=== PATIENT | female | born 1945 | race Caucasian/White ===

== ENCOUNTER → 2016-11-30 | Outpatient (CLI) | payer MEDICARE, OTHER ==
[2016-11-30 15:53] LABS: EKG EKG PERFORMED
[2016-11-30 16:54] LABS: CH 29.7; CHCM 33.7; HCT 38.1 % (34.0-46.0); HDW 2.35; MCH 30.3 pg (25.0-35.0); MCHC 34.2 g/dL (31.0-37.0); MCV 88.5 fL (80.0-100.0); Mean Platelet Volume 7.3; RBC 4.31 m/uL (3.80-5.40); RDW 12.1 % (11.5-15.5)
[2016-11-30 16:59] LABS: ALT 27 U/L (9-52); AST 26 U/L (14-36); Alkaline Phosphatase 87 U/L (38-126); Anion Gap 12 mmol/L; Blood Urea Nitrogen 15 mg/dL (7-17); Calcium 9.5 mg/dL (8.4-10.2); Carbon Dioxide 25 mmol/L (22-30); Chloride 101 mmol/L (98-107); Glucose 92 mg/dL (74-99); Non-African American GFR(MDRD) >60 (>60 ml/min/1.73 sqM); Potassium 4.2 mmol/L (3.5-5.1); Sodium 138 mmol/L (137-145); Total Bilirubin 0.4 mg/dL (0.2-1.3); Total Protein 7.7 g/dL (6.3-8.2)
== END | disposition home or self-care (01) ==
LOC: LABPAT 15:42
PROVIDERS: ATTEND Surgery
DX: Z01.818 Encounter for other preprocedural examination (principal)
CPT/HCPCS: 80053; 85027; 86850; 86900; 86901; 93005

== ENCOUNTER → 2016-12-03 | Outpatient (CLI) | payer MEDICARE, OTHER | END | disposition home or self-care (01) | LOC: LABPAT 07:03 | PROVIDERS: ATTEND Surgery | DX: Z53.9 Procedure and treatment not carried out, unspecified reason (principal) ==

== ENCOUNTER 2016-12-07 10:09 | Inpatient (IN) | payer MEDICARE, OTHER ==
[2016-12-02 13:11] VITALS: BMI 21.6
[~2016-12-07 10:09] MED LIST: DEXAMETHASONE SOD PHOSPHATE 10 MG/ML 1 ML VIAL IV ONE; HEPARIN SODIUM,PORCINE 5,000 UNIT/ML 1 ML VIAL SQ ONE; HYDROmorphone 1 MG/ML 1 ML SYRINGE IVP PRN; ONDANSETRON 4 MG/2 ML VIAL IVP ONE
[2016-12-07 14:02] LABS: Glucose,Whole Blood 119 mg/dL (75-99)
[2016-12-07] MEDS ORDERED: LIDOCAINE 1% 20 ML VIAL (10MG/ML) FOR IV START INTRADERMA ONE (14:03)
[2016-12-07] MEDS: LACTATED RINGERS 1,000 ML IV SCH ×3 (14:03→23:56)
[2016-12-07] MEDS ORDERED: KETOROLAC 30 MG/ML 1 ML VIAL ONE (16:43)
[2016-12-07] MEDS ORDERED: MIDAZOLAM 2 MG/2 ML VIAL ONE (16:43)
[2016-12-07] MEDS ORDERED: PROPOFOL 10 MG/ML 20 ML VIAL IV ONE (16:43)
[2016-12-07] MEDS ORDERED: ROCURONIUM BROMIDE 10 MG/ML 10 ML VIAL IV ONE (16:43)
[2016-12-07] MEDS ORDERED: HYDROmorphone (PF) 1 MG/ML ONE (16:43)
[2016-12-07] MEDS ORDERED: SUCCINYLCHOLINE CHLORIDE 100 MG/5 ML SYR IV ONE (16:43)
[2016-12-07] MEDS ORDERED: LIDOCAINE 1% INJ 10MG/ML (20 ML MDV) ONE (16:43)
[2016-12-07] MEDS ORDERED: fentaNYL (PF) 50 MCG/ML 2 ML AMP ONE (16:43)
[2016-12-07] MEDS ORDERED: GLYCOPYRROLATE 0.2 MG/ML 2 ML VIAL ONE (16:43)
[2016-12-07] MEDS ORDERED: NEOSTIGMINE 1 MG/ML 10 ML VIAL ONE (16:43)
[2016-12-07] MEDS ORDERED: PHENYLEPHRINE-0.9% NACL SYG 1 MG/10 ML SYRINGE ONE (16:43)
[2016-12-07] MEDS: ceFAZolin 2 GM in SODIUM CHLORIDE 0.9% 100 ML IVPB ONE ×2 (16:50→17:25)
[2016-12-07] MEDS: metroNIDAZOLE-NS PMX 500 MG in SALINE 1 100ML.BAG IVPB ONE ×2 (17:00→17:25)
[2016-12-07] MEDS ORDERED: BUPIVACAIN-EPI 0.25%-1:200,000 30 ML VIAL SQ ONE ×2 (17:12)
[2016-12-07] MEDS ORDERED: LACTATED RINGERS 1,000 ML IV ONE ×2 (17:25→18:38)
[2016-12-07] MEDS ORDERED: ONDANSETRON 4 MG/2 ML VIAL IVP PRN (20:00)
[2016-12-07] MEDS ORDERED: METOCLOPRAMIDE 5 MG/ML 2 ML VIAL IVP PRN (20:00)
[2016-12-07] MEDS ORDERED: BENZOCAINE/MENTHOL LOZENG 1 EACH LOZENGE MUCOUS MEM PRN (20:00)
--- NOTE | 2016-12-07 20:06 | P.OP ---
Date of Procedure: 12/07/16 Preoperative Diagnosis: Right colon cancer Postoperative Diagnosis: Same Procedure(s) Performed: Laparoscopic right hemicolectomy Implants: NA Anesthesia: TERRENCE Surgeon: Zena Alonzo Watch Leader #1: Sabine Rodriguez Estimated Blood Loss (ml): 50 Condition: stable Disposition: PACU Indications for Procedure: 71 yrs old female S/P colonoscopy with biopsy of ascending colon mass which showed adenocarcinoma. Metastatic work up negative. CEA was normal. Informed consent obtained and she elected to undergo laparoscopic right hemicolectomy possible open . The risks, benefits and potential complications explained. Operative Findings: Right colon mass. No clinical evidence of metastatic deposit in liver or peritoneum. Description of Procedure: The patient was brought to the operating room and placed in supine position with both arms out. General anesthesia with endotracheal intubation was performed as per anesthesia team. A Conner catheter was inserted under sterile aseptic precautions. Bilateral SCDs were placed and patient was secured to the operating table using a footboard and two secure straps. Chlorhexidine was used to prep the abdomen followed by application of sterile drapes . A timeout was performed to verify correct patient and procedure. Patient was confirmed to receive perioperative IV antibiotics and subcutaneous VTE prophylaxis. A 5 mm skin incision was made along the left anterior axillary line and Veress needle was inserted. Pneumoperitoneum was established to a pressure of 15 mmHg without any difficulty. A 5 mm 30 laparoscope was loaded with 5 mm Optiview trocar and the peritoneal cavity was entered under direct vision using the Optiview technique. Additional 5 mm trocar was placed in left lower quadrant, another 5 mm trocar was placed midway between pubic symphysis and umbilicus and a 10 mm trocar was placed above the umbilicus. The left upper trocar was upsized to 11 mm Patient was placed in reverse Trendelenburg with right side up. The tattooed area was identified in the ascending colon. The appendix was identified and elevated using a Santo grasper. Dissection was carried out from lateral to medial orientation. The white line of Toldt was dissected using laparoscopic LigaSure device. Blunt sweeping movements were carried out using fenestrated graspers to reflect the cecum and ascending colon medially. The peritoneal attachments from terminal ileum and cecum to the lateral abdominal wall were taken down using LigaSure. Dissection was carried out close to the cecum and away from the right ureter. Attention was then focused to mobilize the hepatic flexure. Dissection was then carried out from transverse mesocolon towards the hepatic flexure. Blunt sweeping movements were used and the duodenum was left in the retroperitoneum. Care was taken not to mobilize the right kidney medially. The entire right colon was mobilized beyond the hepatic flexure. Loose fibrofatty tissue including small blood vessels were taken down using LigaSure device. The cecum was free enough to reach the midline. The ileocolic pedicle was taken using Covidien benoit load with gold tip. The appendix was grasped with a laparoscopic Santo instrument. An 4 cm skin incision was made in the upper midline. This was deepened through skin and subcutaneous tissue till the fascia was identified and peritoneal cavity was safely entered. An Amanuel wound protector device was inserted. The appendix along with the cecum was exteriorized. A window was made in mesentery of the small bowel approximately 5 cm from ileocecal valve. The small bowel was divided using Covidien 60 benoit staple load. The ileocolic pedicle divided between two Mitzi clamps and doubly suture ligated. The colon was divided 10 cm distal to the tattoed area after creating a window in the mesocolon. Covidien 60 purple staple load was fired to transect the large bowel. The mesentery was divided between 2 Mitzi clamps . The right colon was sent off as a specimen. Attention was then focused to create a [id number] functional end anastomosis between small bowel and transverse colon. Covidien 60 purple staple loadx 2 was fired to create a [id number] anastomosis. The final enterotomy was closed using 60 purple loadx 2. Three seromuscular sutures of 3-0 silk were placed between the small and large bowel anastomosis. There was no twist or torsion of the large or small bowel. The mesenteric defect was closed with interrupted sutures of 4-0 Vicryl. The anastomosis was interiorized and GelPort was placed. Pneumoperitoneum was reestablished. The anastomosis was checked intracorporeally. No evidence of torsion or twist. The GelPort and Amanuel device was removed and fascia closed with continuous running suture of#1PDS x 2. Preena wound vac dressing applied. The sponge, instrument, needle count were correct x2 Patient tolerated the procedure well and was taken to post anesthetic care unit in stable condition.
[2016-12-07] MEDS ORDERED: SCOPOLAMINE 1.5MG/72HR PATCH TRANSDERM SCH (20:15)
[2016-12-07 20:27] VITALS: RESP 16
[2016-12-07] MEDS: FAMOTIDINE 20 MG/2 ML VIAL IV SCH (22:36)
[2016-12-07] MEDS: ACETAMINOPHEN IV (For NPO) 1,000 MG in EMPTY BAG 1 BAG IVPB SCH (22:41)
[2016-12-07 22:58] LABS: Basophils % (A) 0 %; CHCM 33.2; Eosinophils % (A) 0 %; HCT 37.9 % (34.0-46.0); HDW 2.15; HGB 12.4 gm/dL (11.4-16.0); Luc # (Auto) 0.03; Luc % (Auto) 0; Lymphocytes # (A) 0.3 k/uL (1.0-4.8); Lymphocytes % (A) 3 %; MCH 29.6 pg (25.0-35.0); MCHC 32.6 g/dL (31.0-37.0); MCV 90.7 fL (80.0-100.0); Mean Platelet Volume 7.3; Monocytes # (A) 0.2 k/uL (0-1.0); Monocytes % (A) 3 %; Neutrophils # (A) 8.6 k/uL (1.3-7.7); Neutrophils % (A) 94 %; RBC 4.18 m/uL (3.80-5.40); RDW 12.3 % (11.5-15.5); WBC 9.1 k/uL (3.8-10.6); WBC (Perox) 9.45
[2016-12-07 23:12] LABS: Anion Gap 10 mmol/L; Blood Urea Nitrogen 10 mg/dL (7-17); Calcium 8.8 mg/dL (8.4-10.2); Carbon Dioxide 24 mmol/L (22-30); Chloride 104 mmol/L (98-107); Glucose 161 mg/dL (74-99); Non-African American GFR(MDRD) >60 (>60 ml/min/1.73 sqM); Potassium 4.1 mmol/L (3.5-5.1); Sodium 138 mmol/L (137-145)
[2016-12-08] MEDS: HEPARIN SODIUM,PORCINE 5,000 UNIT/ML 1 ML VIAL SQ SCH ×4 (00:18→23:30)
[2016-12-08] MEDS: HYDROmorphone 1 MG/ML 1 ML SYRINGE IVP PRN ×2 (03:12→19:53)
[2016-12-08] MEDS: ACETAMINOPHEN IV (For NPO) 1,000 MG in EMPTY BAG 1 BAG IVPB SCH ×3 (04:57→15:41)
--- NOTE | 2016-12-08 08:00 | P.PN ---
Subjective A 71-year-old female being seen on rounds this morning is awake alert oriented 3 pain medication effective for pain control. Patient is postop December 07 laparoscopic right hemicolectomy for right colon cancer. Currently patient has a wound VAC in place. No reports of nausea vomiting tolerating ice chips. Labs are pending. Objective - Vital Signs Vital signs: Vital Signs Temp 98.2 F 12/08/16 02:23 Pulse 77 12/08/16 02:23 Resp 16 12/08/16 02:23 BP 126/63 12/08/16 02:23 Pulse Ox 99 12/08/16 02:23 Intake & Output 12/07/16 12/08/16 12/08/16 18:59 06:59 18:59 Intake Total 2700 1160 Output Total 1000 Balance 2700 160 Weight 63.5 kg Intake: IV 2700 1160 Lactated Ringers 1,000 ml 960 @ 120 mls/hr IV .[id number] [facility] Rx#:[id number] Output: Urine 950 Estimated Blood Loss 50 - Exam Physical exam 71-year-old female resting in bed awake and alert oriented 3 appears in no acute distress Lungs essentially clear adequate air movement on room air sats are 99% Heart S1-S2 audible and regular no murmur Abdomen a wound VAC in place to the surgical site functioning appropriately no leak soft not distended surgical tenderness passing no gas no stool urinating no difficulty bowel tones hypoactive Extremities Venodyne's on to the bilateral lower extremities no evidence of edema - Labs CBC & Chem 7: 12/07/16 22:41 12/07/16 22:41 Labs: Abnormal Lab Results - Last 24 Hours (Table) 12/07/16 12/07/16 12/07/16 Range/Units 13:59 22:41 22:41 Neutrophils # 8.6 H (1.3-7.7) k/uL Lymphocytes # 0.3 L (1.0-4.8) k/uL Glucose 161 H (74-99) mg/dL POC Glucose (mg/dL) 119 H (75-99) mg/dL Assessment and Plan Plan: Impression Right colon cancer Depressive disorder nonspecified 12/07/2016 laparoscopic right hemicolectomy for right colon cancer with placement of a wound VAC Plan Continue postop surgical care per surgical service Pain control Resume home meds as appropriate IV fluid for hydration Follow-up on pending labs DVT and GI prophylaxis Increase activity Increase the use of the incentive spirometer The above dictated assessment and findings were discussed with dr pascal Impression and the plan of care have been dictated as directed. Kitty Garibay nurse practitioner acting as a scribe for dr pascal.
[2016-12-08] MEDS: FAMOTIDINE 20 MG/2 ML VIAL IV SCH ×2 (08:18→20:28)
[2016-12-08] MEDS: ALVIMOPAN 12 MG CAPSULE PO SCH ×2 (08:18→20:29)
[2016-12-08] MEDS: LACTATED RINGERS 1,000 ML IV SCH ×4 (08:19→23:24)
[2016-12-08] MEDS: DULoxetine HCL 20 MG CAPSULE.DR PO SCH (22:16)
[2016-12-08] MEDS: cycloSPORINE 0.05% OPHTH 0.4 ML DROPERETTE BOTH EYES SCH (22:16)
[2016-12-09] MEDS: LACTATED RINGERS 1,000 ML IV SCH ×2 (02:54→12:40)
[2016-12-09] MEDS: HYDROmorphone 1 MG/ML 1 ML SYRINGE IVP PRN ×2 (04:21→22:20)
[2016-12-09] MEDS: FAMOTIDINE 20 MG/2 ML VIAL IV SCH ×2 (08:32→19:59)
[2016-12-09] MEDS: cycloSPORINE 0.05% OPHTH 0.4 ML DROPERETTE BOTH EYES SCH ×2 (08:32→19:58)
[2016-12-09] MEDS: HEPARIN SODIUM,PORCINE 5,000 UNIT/ML 1 ML VIAL SQ SCH ×3 (08:32→22:59)
[2016-12-09] MEDS: ALVIMOPAN 12 MG CAPSULE PO SCH ×2 (08:33→19:58)
[2016-12-09] MEDS: DULoxetine HCL 20 MG CAPSULE.DR PO SCH ×2 (08:33→19:59)
[2016-12-09] MEDS ORDERED: HYDROcodone/APAP 5-325MG 1 EACH TAB PO PRN (09:14)
--- NOTE | 2016-12-09 10:23 | P.PN ---
Subjective A 71-year-old female being seen on rounds this morning is awake alert oriented 3 pain medication effective for pain control. Patient is postop December 07 laparoscopic right hemicolectomy for right colon cancer. Currently patient has a GelPort placed to the abdominal wound No reports of nausea vomiting states passing gas rectally no stool tolerating clear liquid diet states has been up ambulating in the hallway. Objective - Vital Signs Vital signs: Vital Signs Temp 98.3 F 12/09/16 07:50 Pulse 65 12/09/16 07:50 Resp 16 12/09/16 07:50 BP 113/51 12/09/16 07:50 Pulse Ox 92 L 12/09/16 07:50 Intake & Output 12/08/16 12/09/16 12/09/16 18:59 06:59 18:59 Intake Total 200 Output Total 350 Balance -350 200 Intake: Oral 200 Output: Urine 350 Other: Voiding Method Toilet Toilet Toilet # Voids 1 2 - Exam Physical exam 71-year-old female resting in bed awake and alert oriented 3 appears in no acute distress states just returned from ambulating in the hallway Lungs essentially clear adequate air movement on room air sats are 99% no cough noted Heart S1-S2 audible and regular no murmur Abdomen a GelPort dressing in place to the surgical site soft not distended surgical tenderness passing no gas no stool urinating no difficulty bowel tones hypoactive Extremities Venodyne's on to the bilateral lower extremities no evidence of edema - Labs CBC & Chem 7: 12/07/16 22:41 12/07/16 22:41 Assessment and Plan Plan: Impression Right colon cancer Depressive disorder nonspecified 12/07/2016 laparoscopic right hemicolectomy for right colon cancer with placement of a GelPort Plan Continue postop surgical care per surgical service Pain control Resume home meds as appropriate IV fluid for hydration Follow-up on pending labs DVT and GI prophylaxis Increase activity Increase the use of the incentive spirometer Prepped for probable discharge within the next 24 hours The above dictated assessment and findings were discussed with Dr. Perez covering for dr pascal Impression and the plan of care have been dictated as directed. Kitty Garibay nurse practitioner acting as a scribe for Dr. Perez covering for dr pascal.
[2016-12-09] MEDS: ACETAMINOPHEN TAB 325 MG TAB PO PRN ×2 (12:42→19:16)
--- NOTE | 2016-12-09 22:21 | P.PN ---
Progress Note - Text Patient seen and evaluated. She is passing flatus and having bowel movements. Prevena wound vac suction system adjusted and working. Anticipate discharge home tomorrow with follow-up with Dr. Alonzo next week.
[2016-12-10] MEDS: HYDROmorphone 1 MG/ML 1 ML SYRINGE IVP PRN ×3 (05:10→08:34)
[2016-12-10] MEDS: LACTATED RINGERS 1,000 ML IV SCH ×2 (05:14→07:44)
[2016-12-10 07:41] VITALS: BP 138/63; TEMP 98.1
[2016-12-10] MEDS: ALVIMOPAN 12 MG CAPSULE PO SCH (07:42)
[2016-12-10] MEDS: HEPARIN SODIUM,PORCINE 5,000 UNIT/ML 1 ML VIAL SQ SCH (07:42)
[2016-12-10] MEDS: cycloSPORINE 0.05% OPHTH 0.4 ML DROPERETTE BOTH EYES SCH (07:43)
[2016-12-10] MEDS: FAMOTIDINE 20 MG/2 ML VIAL IV SCH (07:43)
[2016-12-10] MEDS: DULoxetine HCL 20 MG CAPSULE.DR PO SCH (07:45)
[2016-12-10 09:34] VITALS: PULSE 69
--- NOTE | 2016-12-10 12:55 | P.PN ---
Subjective Principal diagnosis: Colon cancer The patient 71-year-old female status post right hemicolectomy. She has passed flatus. No reports of nausea and vomiting. She reports intermittent abdominal pain. She is tolerating diet. Wound VAC is working. Objective - Vital Signs Vital signs: Vital Signs Temp 98.1 F 12/10/16 07:40 Pulse 69 12/10/16 08:00 Resp 16 12/10/16 08:00 BP 138/63 12/10/16 07:40 Pulse Ox 93 L 12/10/16 08:03 Intake & Output 12/09/16 12/10/16 12/10/16 18:59 06:59 18:59 Output Total 400 Balance -400 Weight 63.5 kg Output: Urine 400 Other: Voiding Method Toilet Toilet Toilet - Exam GENERAL: Well developed and in no acute distress. Pleasant. HEENT: No sclera icterus. Extraocular movements grossly intact. Moist buccal mucosa. Head is atraumatic, normocephalic. Hears conversational speech. No nasal drainage. NECK: Supple without lymphadenopathy. No JV distention. CHEST: Non-labored respirations and equal bilateral excursions. CARDIOVASCULAR: Regular rate and rhythm. Palpable 2+ radial pulses. ABDOMEN: Soft, minimal incisional pain to deep palpation. No peritoneal signs. Vac system clean, dry and intact without cellulitis or infection. Nondistended. MUSCULOSKELETAL: No clubbing, cyanosis or edema. NEUROLOGIC: No focal or lateralizing signs. PSYCH: Appropriate affect. Alert and oriented to person, place and time. - Labs CBC & Chem 7: 12/07/16 22:41 12/07/16 22:41 Assessment and Plan (1) Ascending colon malignant neoplasm Status: Acute Plan: 1. She still well may discharge home today. 2. Continue with wound VAC to be discontinued within the office. 3. Diet as tolerated. 4. May sponge bath. No bath tub soaks was reviewed. 5. Follow-up with Dr. Alonzo in the office. I am rounding on behalf of Dr. Alonzo.
--- NOTE | 2016-12-10 12:57 | P.DS ---
Providers Date of admission: 12/07/16 13:16 Expected date of discharge: 12/10/16 Attending physician: Zena Alonzo Primary care physician: Navjot Sutton Rdz - Discharge Diagnosis(es) (1) Ascending colon malignant neoplasm Current Visit: Yes Status: Acute Hospital Course: The patient is a 71-year-old female who was admitted to undergo right hemicolectomy for ascending colon cancer by Dr. Alonzo. Postoperatively, her wound was managed with a wound VAC system. Prior to discharge, she was tolerating diet and passing flatus. Pain was controlled with pain meds. Pertinent Studies: None. Procedures: Laparoscopic right hemicolectomy Patient Condition at Discharge: Stable Plan - Discharge Summary New Discharge Prescriptions: Docusate [Colace] 100 mg PO BID #30 capsule HYDROcodone/APAP 5-325MG [[place] 5-325] 1 tab PO Q4HR PRN #30 tab PRN Reason: Pain Discharge Medication List Calcium Carb/Vitamin D3/Vit K1 [Citracal Soft Chew] 1 tab PO DAILY 12/02/16 [ History] DULoxetine HCL [Cymbalta] 20 mg PO BID 12/02/16 [History] Ibuprofen [Motrin] 200 - 400 mg PO Q6H PRN 12/02/16 [History] Multivitamins, Thera [Multivitamin (formulary)] 1 tab PO DAILY 12/02/16 [History ] cycloSPORINE [Restasis] 1 drop BOTH EYES BID 12/02/16 [History] tiZANidine [Zanaflex] 2 mg PO TID PRN 12/02/16 [History] Docusate [Colace] 100 mg PO BID #30 capsule 12/08/16 [Rx] HYDROcodone/APAP 5-325MG [[place] 5-325] 1 tab PO Q4HR PRN #30 tab 12/08/16 [Rx] Follow up Appointment(s)/Referral(s): Zena Alonzo MD [STAFF PHYSICIAN] - 12/13/16 (Office closed, Please call to make appointment for said date. ) [facility], [NON-STAFF] - 1 Week Patient Instructions/Handouts: Colectomy (GEN) Discharge Disposition: HOME SELF-CARE
[2016-12-10] MEDS ORDERED: FAMOTIDINE 20 MG TAB PO SCH (21:00)
== END 2016-12-10 14:05 | disposition home health service (06) | DRG 331 ==
LOC: 2ORMAIN 13:16 → 3SUR 20:11
PROVIDERS: ADMIT Surgery; ATTEND Surgery
PROC: 0DTF4ZZ Resection of Right Large Intestine, Percutaneous Endoscopic Approach (ICD-10-PCS; principal; 2016-12-07 15:25)
DX: C18.2 Malignant neoplasm of ascending colon (principal); F32.9 Major depressive disorder, single episode, unspecified; Z79.899 Other long term (current) drug therapy
CPT/HCPCS: 80048; 82378; 85025; 86850; 86900; 86901; 88309; 94760